=== PATIENT | female | born 1980 | race Hispanic/Latino ===

== ENCOUNTER 2022-01-07 18:34 | Emergency (ER) | payer OTHER ==
[2022-01-07] MEDS ORDERED: Ondansetron ODT 4 MG TAB ONE (19:40)
[2022-01-07] MEDS ORDERED: Ketorolac Tromethamine 30 MG/ML VIAL ONE (19:44)
[2022-01-08 19:21] LABS: SARS-CoV-2 PCR by NAA Not Detected (NotDetected)
== END 2022-01-07 20:19 | disposition home or self-care (01) ==
LOC: CSHERS 18:34
DX: J01.90 Acute sinusitis, unspecified (principal); Z20.822 Contact with and (suspected) exposure to COVID-19
CPT/HCPCS: 96372; 99283; J1885; Q0162; U0003; U0005

== ENCOUNTER 2024-10-22 18:45 | Emergency (ER) | payer SELFPAY ==
[2024-10-22] MEDS ORDERED: Acetaminophen 500 MG TAB ONE (21:00)
== END 2024-10-22 23:20 | disposition home or self-care (01) ==
LOC: CSHERS 18:45
DX: J06.9 Acute upper respiratory infection, unspecified (principal)
CPT/HCPCS: 87081; 87428; 87430; 99283